=== PATIENT | female | born 1965 | race African-American/Black ===

== ENCOUNTER 2020-10-09 17:39 | Emergency (ER) | payer OTHER ==
[~2020-10-09] VITALS: Ht 162.6 cm; Wt 73.0 kg
[2020-10-09] MEDS ORDERED: SODIUM CHLORIDE 0.9% 1,000 ML IV ONE (18:45)
[2020-10-09 20:07] LABS: BASOPHILS % 0.7 % (0.0-2.0); EOSINOPHILS % 0.5 % (0.0-5.0); HEMATOCRIT. 40.8 % (36.0-48.0); HEMOGLOBIN. 13.7 g/dL (12.0-16.0); LYMPHOCYTES % 26.8 % (20.0-50.0); MEAN CORPUSCULAR VOLUME 92.5 fL (81.0-99.0); MEAN PLATELET VOLUME 9.2 fl (7.4-10.4); MONOCYTES % 9.3 % (2.0-8.0); NEUTROPHILS % 62.7 % (40.0-76.0); PLATELET 258 x1000/uL (130-400); RED BLOOD CELL COUNT 4.41 mill/uL (4.2-5.4); RED CELL DISTRIBUTION WIDTH 12.9 % (11.6-14.6)
[2020-10-09 20:15] LABS: CHLORIDE 106 mEq/L (98-107)
[2020-10-09 21:13] VITALS: BP 152/76
== END 2020-10-09 21:14 | disposition home or self-care (01) ==
LOC: ER 17:39
DX: R55 Syncope and collapse (principal); I10 Essential (primary) hypertension; R00.0 Tachycardia, unspecified
CPT/HCPCS: 36415; 80053; 84484; 85025; 93005; 99284; J7030

== ENCOUNTER 2025-06-07 10:24 | Emergency (ER) | payer OTHER ==
[~2025-06-07] VITALS: Ht 162.6 cm; Wt 68.0 kg
[2025-06-07] MEDS: ONDANSETRON HCL 4MG/2ML INJ IV ONE (11:28)
[2025-06-07] MEDS: SODIUM CHLORIDE 0.9% 1,000 ML IV ONE (11:28)
[2025-06-07] MEDS: MORPHINE SULFATE 4 MG/ML INJ (FOR IV/IM USE) IV ONE ×2 (11:28→18:40)
[2025-06-07 12:09] LABS: BASOPHILS % 0.5 % (0.0-2.0); EOSINOPHILS % 0.5 % (0.0-5.0); HEMATOCRIT. 37.7 % (36.0-48.0); HEMOGLOBIN. 12.5 g/dL (12.0-16.0); LYMPHOCYTES % 28.4 % (20.0-50.0); MEAN PLATELET VOLUME 8.9 fl (7.4-10.4); MONOCYTES % 9.0 % (2.0-8.0); NEUTROPHILS % 61.6 % (40.0-76.0); PLATELET 216 x1000/uL (130-400); RED BLOOD CELL COUNT 4.02 mill/uL (4.2-5.4); RED CELL DISTRIBUTION WIDTH 12.9 % (11.6-14.6)
[2025-06-07 12:22] LABS: CREATININE 0.9 mg/dL (0.6-1.0); UREA NITROGEN BLOOD 9 mg/dL (9-23)
[2025-06-07 12:25] VITALS: O2SAT 100
[2025-06-07 12:30] LABS: INR 1.0
[2025-06-07] MEDS: ETOMIDATE 2MG/ML 10ML VIAL IV ONE (12:54)
[2025-06-07] MEDS: HYDROMORPHONE HCL/PF 2MG/ML INJ IV ONE (13:27)
[2025-06-07] MEDS ORDERED: HYDROMORPHONE HCL/PF 2MG/ML INJ IV ONE (15:30)
[2025-06-07] MEDS: HYDROMORPHONE HCL/PF 1MG/ML INJ IV NR (16:08)
[2025-06-07 18:16] VITALS: BP 143/88; PULSE 78; RESP 14; TEMP 37; O2SAT 100
== END 2025-06-07 18:20 | disposition short-term general hospital (02) ==
LOC: ER 10:24 → CMPBEDREQ 19:36
DX: S82.852A Displaced trimalleolar fracture of left lower leg, initial encounter for closed fracture (principal); I10 Essential (primary) hypertension; E87.6 Hypokalemia; Z88.8 Allergy status to other drugs, medicaments and biological substances; Z79.899 Other long term (current) drug therapy; Z98.890 Other specified postprocedural states; W01.0XXA Fall on same level from slipping, tripping and stumbling without subsequent striking against object, initial encounter; Y92.22 Religious institution as the place of occurrence of the external cause; Y93.01 Activity, walking, marching and hiking; Y99.8 Other external cause status
CPT/HCPCS: 80048; 85025; 85610; 85730; 36415; 73600; 73620; 93005; 27818; 96361; 96374; 96375; 96376; 99152; 99285; J3490; J2405; J1171; J2270; J7030; Z7610 ×2; A6449